=== PATIENT | male | born 1950 | race Caucasian/White ===

== ENCOUNTER 2019-11-12 21:48 | Emergency (ER) | payer MEDICARE, OTHER ==
[2019-11-12] MEDS ORDERED: Sodium Phosphate,Monobasic/Sodium Phosphate,Dibasic Enema 133 ML Bottle RECTAL ONE (22:05)
--- NOTE | 2019-11-12 22:36 | EDM.PDOC ---
ED HPI GENERAL MEDICAL PROBLEM - General Chief Complaint: General Stated Complaint: CONSTIPATED Time Seen by Provider: 11/12/19 21:55 Source of Information: Reports: Patient History Limitations: Reports: No Limitations - History of Present Illness INITIAL COMMENTS - FREE TEXT/NARRATIVE: pt comes in with c/o constipation, tells me last BM was 3 days ago, and that he has been feeling the urge but nothing happening, even after using OTC stole softeners, pt denies abd pain other GI sx or concerns. report this to be an occasional problems. - Related Data Allergies Allergy/AdvReac Type Severity Reaction Status Date / Time No Known Allergies Allergy Verified 11/12/19 22:02 ED ROS GENERAL - Review of Systems Review Of Systems: See Below Constitutional: Reports: No Symptoms Respiratory: Reports: No Symptoms Cardiovascular: Reports: No Symptoms GI/Abdominal: Reports: Constipation. Denies: Abdominal Pain, Anorexia, Nausea, Vomiting : Reports: No Symptoms Musculoskeletal: Reports: No Symptoms Skin: Reports: No Symptoms ED EXAM, GENERAL - Physical Exam Exam: See Below Exam Limited By: No Limitations General Appearance: Alert, No Apparent Distress Respiratory/Chest: No Respiratory Distress, Lungs Clear, Normal Breath Sounds Cardiovascular: Normal Peripheral Pulses, Regular Rate, Rhythm GI/Abdominal: Normal Bowel Sounds, Soft, Non-Tender Back Exam: Normal Inspection Extremities: Normal Inspection, Normal Range of Motion Neurological: Alert, Oriented, CN II-XII Intact, Normal Reflexes, No Motor/Sensory Deficits Skin Exam: Warm Course - Vital Signs Text/Narrative:: pt was given a fleet enema here , then had a LG BM after that , pt feels comfortable now and he is stable for discharge home with supportive mng for re current constipation/ high fiber diet, regular use of stool softeners and if needed laxatives. pt to follow with PCP if needed . Last Recorded V/S: Last Vital Signs Temp 36.4 C 11/12/19 22:00 Pulse 68 11/12/19 22:00 Resp 18 11/12/19 22:00 BP 126/77 11/12/19 22:00 Pulse Ox 98 11/12/19 22:00 Departure - Departure Time of Disposition: 22:36 Disposition: Home, Self-Care 01 Clinical Impression: Constipation - Discharge Information Referrals: Alfredito Chanel MD [Primary Care Provider] - Sepsis Event Note (ED) - Focused Exam Vital Signs: Vital Signs Temp Pulse Resp BP Pulse Ox 11/12/19 22:00 36.4 C 68 18 126/77 98
== END 2019-11-12 22:40 | disposition home or self-care (01) ==
LOC: FB.ED 21:48
DX: K59.00 Constipation, unspecified (principal)
CPT/HCPCS: 99283